=== PATIENT | female | born 1950 | race Caucasian/White ===

== ENCOUNTER 2018-03-20 08:49 | Outpatient (REF) | payer MEDICARE, SELFPAY ==
[2018-03-20 21:07] LABS: Anion Gap 7.1 mmol/L (3-11); BUN 15 mg/dL (7-18); CO2 30.9 mmol/L (21.0-32.0); Calcium 9.5 mg/dL (8.5-10.1); Chloride 101 mmol/L (98-107); Glucose 172 mg/dL (70-100); Potassium 4.2 mmol/L (3.5-5.1); Sodium 139 mmol/L (136-145)
== END 2018-03-20 09:09 ==
LOC: NCHCN 08:49
PROVIDERS: PCP Internal Medicine; Visit Provider Nurse Practitioner Family
DX: E11.9 Type 2 diabetes mellitus without complications (principal); I10 Essential (primary) hypertension
CPT/HCPCS: 80048

== ENCOUNTER 2018-07-30 15:24 | Outpatient (REF) | payer MEDICARE, OTHER, SELFPAY ==
[2018-07-31 12:50] LABS: Specimen Description SEE COMMENTS; Varicella Zoster DNA Result Negative
[2018-07-31 12:57] LABS: HSV 1 DNA Result Negative; HSV 2 DNA Result Negative; Specimen Description SEE COMMENTS
== END 2018-07-30 15:44 ==
LOC: NCHCN 15:24
PROVIDERS: PCP Internal Medicine; Visit Provider Nurse Practitioner Family
DX: L03.019 Cellulitis of unspecified finger (principal); Z11.59 Encounter for screening for other viral diseases
CPT/HCPCS: 87529; 87798; 86695; 86696; 87070; 87205

== ENCOUNTER 2018-09-25 09:10 | Outpatient (REF) | payer MEDICARE, OTHER, SELFPAY ==
[2018-09-25 21:37] LABS: COMMENT (LAB VIEW ONLY) 119.42 mg/dL; Microalb ug/mg Crea 20.3 ug/mg Cr
== END 2018-09-25 09:30 ==
LOC: NCHCN 09:10
PROVIDERS: PCP Nurse Practitioner Family; Visit Provider Nurse Practitioner Family
DX: E11.9 Type 2 diabetes mellitus without complications (principal); I10 Essential (primary) hypertension
CPT/HCPCS: 82043; 82570

== ENCOUNTER 2019-03-26 08:44 | Outpatient (REF) | payer MEDICARE, OTHER, SELFPAY ==
[2019-03-26 22:42] LABS: ALT 22 U/L (14-59); AST 17 U/L (15-37); Albumin 3.4 g/dL (3.4-5.0); Alkaline Phosphatase 106 U/L (46-116); Anion Gap 9.5 mmol/L (3-11); BUN 17 mg/dL (7-18); Bilirubin, Total 0.3 mg/dL (0.2-1.0); CO2 28.5 mmol/L (21.0-32.0); CREATININE 0.73 mg/dL (0.55-1.02); Calcium 8.8 mg/dL (8.5-10.1); Chloride 103 mmol/L (98-107); Glucose 126 mg/dL (74-106); Sodium 141 mmol/L (136-145); Total Protein 6.2 g/dL (6.4-8.2)
== END 2019-03-26 09:04 ==
LOC: NCHCN 08:44
PROVIDERS: PCP Nurse Practitioner Family; Visit Provider Nurse Practitioner Family
DX: I10 Essential (primary) hypertension (principal); E11.9 Type 2 diabetes mellitus without complications
CPT/HCPCS: 80053

== ENCOUNTER 2020-04-21 14:53 | Outpatient (REF) | payer MEDICARE, SELFPAY ==
[2020-04-21 14:06] LABS: Anion Gap 10.8 mmol/L (3-11); BUN 16 mg/dL (7-18); CO2 27.2 mmol/L (21.0-32.0); CREATININE 0.9 mg/dL (0.55-1.02); Calcium 9.2 mg/dL (8.5-10.1); Chloride 102 mmol/L (98-107); Glucose 155 mg/dL (74-106); Sodium 140 mmol/L (136-145)
[2020-04-21 14:11] LABS: Hemoglobin A1C 6.5 % (<5.7)
== END 2020-04-21 14:54 | disposition home or self-care (01) ==
LOC: NCHCN 14:53
PROVIDERS: PCP Nurse Practitioner Family; Visit Provider Nurse Practitioner Family
DX: E11.9 Type 2 diabetes mellitus without complications (principal); I10 Essential (primary) hypertension
CPT/HCPCS: 80048; 83036

== ENCOUNTER 2020-10-18 17:48 | Outpatient (REF) | payer MEDICARE, SELFPAY ==
[2020-10-18 16:47] LABS: Microalb ug/mg Crea 8.7 ug/mg Cr
== END 2020-10-18 17:49 | disposition home or self-care (01) ==
LOC: NCHCN 17:48
PROVIDERS: PCP Nurse Practitioner Family; Visit Provider Nurse Practitioner Family
DX: E11.9 Type 2 diabetes mellitus without complications (principal); I10 Essential (primary) hypertension
CPT/HCPCS: 82043; 82570

== ENCOUNTER 2021-04-10 16:00 | Outpatient (REF) | payer MEDICARE, SELFPAY ==
[2021-04-10 17:19] LABS: Anion Gap 7.6 mmol/L (3-11); BUN 15 mg/dL (7-18); CO2 32.4 mmol/L (21.0-32.0); CREATININE 0.9 mg/dL (0.55-1.02); Calcium 9.2 mg/dL (8.5-10.1); Chloride 98 mmol/L (98-107); Glucose 140 mg/dL (74-106); Potassium 3.6 mmol/L (3.5-5.1); Sodium 138 mmol/L (136-145); Vitamin B12 351 pg/mL (193-986)
== END 2021-04-10 16:01 | disposition home or self-care (01) ==
LOC: NCHCN 16:00
PROVIDERS: PCP Nurse Practitioner Family; Visit Provider Nurse Practitioner Family
DX: E11.9 Type 2 diabetes mellitus without complications (principal); I10 Essential (primary) hypertension; Z51.81 Encounter for therapeutic drug level monitoring
CPT/HCPCS: 80048; 82607; 83036

== ENCOUNTER 2021-10-09 10:38 | Outpatient (REF) | payer MEDICARE, SELFPAY ==
[2021-10-09 14:57] LABS: HCT 39.5 % (36.0-46.0); HGB 13.1 g/dL (11.2-15.7); MCH 28.2 pg (27.0-33.0); MCHC 33.2 % (32.0-36.0); MCV 85 fL (80-95); MPV 11.4 fL (8.0-11.0); Platelet Count 236 10^3/uL (130-400); RBC 4.64 10^6/uL (3.93-5.22); RDW 13.5 % (11.7-14.6); WBC 7.32 10^3/uL (4.4-10.8)
[2021-10-09 15:08] LABS: Anion Gap 7.2 mmol/L (3-11); BUN 18 mg/dL (7-18); CO2 27.8 mmol/L (21.0-32.0); CREATININE 0.9 mg/dL (0.55-1.02); Chloride 103 mmol/L (98-107); Glucose 140 mg/dL (74-106); Potassium 3.7 mmol/L (3.5-5.1); Sodium 138 mmol/L (136-145)
[2021-10-09 15:33] LABS: Hemoglobin A1C 6.8 % (<5.7)
== END 2021-10-09 10:39 | disposition home or self-care (01) ==
LOC: NCHCN 10:38
PROVIDERS: PCP Nurse Practitioner Family; Visit Provider Nurse Practitioner Family
DX: Z13.0 Encounter for screening for diseases of the blood and blood-forming organs and certain disorders involving the immune mechanism (principal); Z51.81 Encounter for therapeutic drug level monitoring; E11.9 Type 2 diabetes mellitus without complications; I10 Essential (primary) hypertension; E66.9 Obesity, unspecified
CPT/HCPCS: 80048; 85027; 83036

== ENCOUNTER 2021-10-12 11:07 | Outpatient (REF) | payer MEDICARE, SELFPAY ==
[2021-10-12 16:35] LABS: COMMENT (LAB VIEW ONLY) 27.17 mg/dL; Microalb ug/mg Crea 8.1 ug/mg Cr
== END 2021-10-12 11:08 | disposition home or self-care (01) ==
LOC: NCHCN 11:07
PROVIDERS: PCP Nurse Practitioner Family; Visit Provider Nurse Practitioner Family
DX: E11.9 Type 2 diabetes mellitus without complications (principal)
CPT/HCPCS: 82043; 82570

== ENCOUNTER 2022-01-02 17:43 | Outpatient (REF) | payer MEDICARE, SELFPAY ==
--- NOTE | 2022-01-02 11:30 | SKI_PTH ---
PATIENT: Harsh Santana LOC: [facility] U#:[id number] AGE/SX: 71/F ROOM: RE01/02/[address]: Ara Suarez : 1950 BED: DIS: 01/02/2022 SPEC #: [id number] RECD: 01/03/22 12:39 STATUS: HENOK REFrancisco #: [id number] JENY: 01/02/22 11:[address]: Ara Lechuga DEPT: Surgical Specimen RECD BY: Anne Campa Tissues: 1 - SKIN BIOPSY(SHAVE/PUNCH) Procedures: SKIN LEVEL 4 Comments: [id number]
== END 2022-01-02 17:44 | disposition home or self-care (01) ==
LOC: NCHCN 17:43
PROVIDERS: PCP Nurse Practitioner Family; Visit Provider Nurse Practitioner Family
DX: C44.42 Squamous cell carcinoma of skin of scalp and neck (principal)
CPT/HCPCS: 88305

== ENCOUNTER 2022-05-17 10:30 | Outpatient (CLI) | payer MEDICARE, SELFPAY ==
--- NOTE | 2022-05-17 10:38 | DI.RAD_ITS ---
Exam(s) XR HIP LT COMPLETE AP PELVIS EXAM: XR HIP LT COMPLETE AP PELVIS CLINICAL HISTORY: L hip pain. TECHNIQUE: 2D digital imaging was performed of the left hip. Two views were obtained. AP pelvis an d lateral left hip views were obtained. COMPARISON: No exams were available for comparison FINDINGS: BONES: No acute fracture is present. No bony destructive lesion is seen. JOINTS: No dislocation present. There are degenerative changes of the left hip with joint space narro wing and acetabular spurring. The patient has a right total hip replacement which appears in good po sition. SOFT TISSUE: Normal. IMPRESSION: Mild degenerative changes of the left hip. DATA REPOSITORY: RADIATION DOSE DELIVERED:
== END 2022-05-17 10:31 | disposition home or self-care (01) ==
LOC: DIORS 10:30
PROVIDERS: PCP Nurse Practitioner Family; Referring Provider Nurse Practitioner Family; Visit Provider Student in an Organized Health Care Education/Training Program
DX: M16.12 Unilateral primary osteoarthritis, left hip
CPT/HCPCS: 99203; 73502

== ENCOUNTER 2022-06-15 01:44 | Outpatient (CLI) | payer MEDICARE, SELFPAY ==
[2022-06-15 11:56] LABS: HCT 39.3 % (36.0-46.0); HGB 13.2 g/dL (11.2-15.7); MCH 28.9 pg (27.0-33.0); MCHC 33.6 % (32.0-36.0); MCV 86 fL (80-95); Platelet Count 243 10^3/uL (130-400); RBC 4.56 10^6/uL (3.93-5.22); RDW 13.9 % (11.7-14.6); RDW-SD 43.6 fL; WBC 9.89 10^3/uL (4.4-10.8)
[2022-06-15 12:04] LABS: Hemoglobin A1C 7.1 % (<5.7)
[2022-06-15 12:31] LABS: Anion Gap 7.8 mmol/L (3-11); BUN 13 mg/dL (7-18); CO2 31.2 mmol/L (21.0-32.0); CREATININE 0.9 mg/dL (0.55-1.02); Calcium 9.4 mg/dL (8.5-10.1); Chloride 100 mmol/L (98-107); Estimated GFR 67.92 (mL/min/1.73m2); Glucose 158 mg/dL (74-106); Potassium 4.2 mmol/L (3.5-5.1); Sodium 139 mmol/L (136-145)
== END 2022-06-15 01:45 | disposition home or self-care (01) ==
LOC: LBO 01:52
PROVIDERS: PCP Nurse Practitioner Family; Visit Provider Student in an Organized Health Care Education/Training Program
DX: M25.552 Pain in left hip (principal); M16.12 Unilateral primary osteoarthritis, left hip; E11.9 Type 2 diabetes mellitus without complications; I10 Essential (primary) hypertension; Z01.818 Encounter for other preprocedural examination; Z01.812 Encounter for preprocedural laboratory examination
CPT/HCPCS: 36415; 80048; 85027; 83036

== ENCOUNTER 2022-10-05 01:48 | Outpatient (CLI) | payer MEDICARE, SELFPAY ==
[2022-10-05 10:02] LABS: HCT 39.4 % (36.0-46.0); HGB 13.4 g/dL (11.2-15.7); MCH 29.1 pg (27.0-33.0); MCV 86 fL (80-95); MPV 10.6 fL (8.0-11.0); Platelet Count 249 10^3/uL (130-400); RBC 4.61 10^6/uL (3.93-5.22); RDW 13.3 % (11.7-14.6)
[2022-10-05 10:22] LABS: Hemoglobin A1C 6.8 % (<5.7)
[2022-10-05 10:24] LABS: Anion Gap 8.8 mmol/L (3-11); BUN 18 mg/dL (7-18); CO2 29.2 mmol/L (21.0-32.0); Calcium 9.2 mg/dL (8.5-10.1); Chloride 103 mmol/L (98-107); Estimated GFR 59.86 (mL/min/1.73m2); Glucose 178 mg/dL (74-106); Potassium 3.3 mmol/L (3.5-5.1); Sodium 141 mmol/L (136-145)
== END 2022-10-05 01:49 | disposition home or self-care (01) ==
LOC: LBO 01:48
PROVIDERS: PCP Nurse Practitioner Family; Visit Provider Student in an Organized Health Care Education/Training Program
DX: M25.552 Pain in left hip (principal); M16.12 Unilateral primary osteoarthritis, left hip; E11.9 Type 2 diabetes mellitus without complications; I10 Essential (primary) hypertension; Z01.818 Encounter for other preprocedural examination; Z01.812 Encounter for preprocedural laboratory examination
CPT/HCPCS: 36415; 80048; 85027; 83036

== ENCOUNTER 2022-10-09 05:49 | Day surgery (SDC) | payer MEDICARE, SELFPAY ==
[2022-10-09] VITALS (9 sets, daily range): BP systolic 110–141; BP diastolic 48–95; PULSE 64–82; RESP 15–20; TEMP 35.9–36.4; O2SAT 93–99; BMI 39.6
[2022-10-09] MEDS: Celecoxib 200 MG CAP 400 MG PO (06:39)
[2022-10-09] MEDS: Acetaminophen 500 MG TAB 1000 MG PO (06:39)
[2022-10-09] MEDS: Lactated Ringers 1,000 ML 80 ML IV (07:00)
--- NOTE | 2022-10-09 07:06 | ANES.PREOP_ITS ---
General Info Date of Service Date Performed: 10/09/22 Height: 5 ft 3.75 in Weight: 103.8 kg Body Mass Index (BMI): 39.6 Surgical Procedure: Operation Date: 10/09/22 07:50 Proposed Procedure Side Surgeon p Hip Total Hip Anterior, ACTIS (08/22 STD) Left Franklyn Cooper MD Meds Allergies and Home Medications Allergies Allergy/AdvReac Type Severity Reaction Status Date / Time iodine Allergy Severe Verified 10/08/22 14:54 shellfish derived Allergy Severe Verified 10/08/22 14:54 lisinopril Allergy Mild Verified 10/08/22 14:54 Home Medication Medication Instructions Recorded albuterol sulfate 90 mcg/actuation 2 puff inhalation Q6H PRN 04/17/22 aerosol inhaler (ProAir HFA) insulin glargine 100 unit/mL (3 30 unit subcut QAM 04/18/22 mL) subcutaneous pen (Lantus Solostar U-100 Insulin) losartan 50 mg-hydrochlorothiazide 1 tab PO DAILY 04/18/22 12.5 mg tablet metformin 500 mg tablet 1,000 mg PO BID 04/18/22 red yeast rice 600 mg capsule 1,200 mg PO DAILY 04/18/22 berberine-herbal comb no.18 capsule 1 cap PO DIRECTED 06/15/22 bitter melon extract 750 mg tablet 750 mg PO DIRECTED 06/15/22 lysine 500 mg tablet (L-Lysine) 500 mg PO DAILY 06/15/22 turmeric root extract 500 mg tablet 1,000 mg PO DAILY 06/15/22 loratadine-pseudoephedrine ER 10 1 tab PO DAILY 10/08/22 mg-240 mg tablet,extended [id number] (Claritin-D 24 Hour) acetaminophen 500 mg tablet 1,000 mg PO Q8H PRN pain #90 tabs 10/09/22 aspirin 81 mg tablet,delayed 81 mg PO BID 30 days #60 tabs 10/09/22 release celecoxib 200 mg capsule (Celebrex) 200 mg PO BID PRN #60 caps 10/09/22 docusate sodium 100 mg capsule 100 mg PO BID #30 caps 10/09/22 (Colace) gabapentin 300 mg capsule 300 mg PO QHS #14 caps 10/09/22 oxycodone 5 mg tablet 5 mg PO Q6H PRN #12 tabs 10/09/22 pantoprazole 40 mg tablet,delayed 40 mg PO DAILY 30 days #30 tabs 10/09/22 release Current Visit Medications: Current Medications Generic Name Dose Route Start Last Admin Trade Name Rajendra PRN Reason Stop Dose Admin Acetaminophen 1,000 mg 10/09/22 06:00 10/09/22 06:39 Acetaminophen 500 Mg Tab PO 10/09/22 16:00 1,000 mg PREOP MIQUEL Administration Celecoxib 400 mg 10/09/22 06:00 10/09/22 06:39 Celecoxib 200 Mg Cap PO 10/09/22 16:00 400 mg PREOP MIQUEL Administration Tranexamic Acid 1,000 mg/ 60 mls @ 360 mls/hr 10/09/22 06:00 Sodium Chloride IV 10/09/22 16:00 PREOP MIQUEL Ringer's Solution 1,000 mls @ 80 mls/hr 10/09/22 06:00 10/09/22 07:00 IV 11/07/22 23:59 80 mls/hr INFUSION MIQUEL Administration Cefazolin Sodium/Dextrose 2 gm in 50 mls @ 100 mls/hr 10/09/22 06:00 Ancef Duplex IVPB 11/07/22 23:59 PREOP MIQUEL IV Miscellaneous Supplies 1 each 10/09/22 06:00 Iv Access IV 11/07/22 23:59 DIRECTED MIQUEL Sodium Chloride 0 ml 10/09/22 06:00 Normal Saline Flush 10 Ml Syr IV 11/07/22 23:59 PRN PRN Sodium Chloride 0 ml 10/09/22 06:00 Normal Saline 10 Ml Vial IJ 11/07/22 23:59 DIRECTED PRN Sterile Water 0 ml 10/09/22 06:00 Water,Injection,Sterile 10 Ml Vial IJ 11/07/22 23:59 DIRECTED PRN PFSH Active Problems Active Problems: Problem Status Onset Code 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 Systolic murmur R01.1 Type 2 diabetes mellitus E11.9 Hypertension I10 Hyperlipidemia E78.5 Asthma, intermittent J45.20 Primary osteoarthritis of left hip M16.12 Medical History Medical History Actinic keratosis Alopecia senilis GERD (gastroesophageal reflux disease) High grade dysplasia in colonic adenoma Surgical History Surgical History (Updated 10/09/22 @ 06:23 by Lorrie Nicole) Bilateral cataracts History of carpal tunnel surgery of right wrist History of total right hip replacement Hx of colonoscopy Status post appendectomy Status post cholecystectomy Status post small bowel resection (~2019) Tobacco Smoking/Tobacco Use Status: Never Alcohol Alcohol Intake: never Substance Use Substance use type: does not use Vital Signs and Lab Results Vital Signs Most Recent Vital Signs in EMR: Most Recent Vital Signs Temp Pulse Resp BP Pulse Ox 36.4 C L 69 16 133/80 97 10/09/22 06:24 10/09/22 06:24 10/09/22 06:24 10/09/22 06:24 10/09/22 06:24 Lab Results Blood Type / Crossmatch: No Data to Display Complete Blood Count: White Blood Count 7.70 10^3/uL (4.4-10.8) 10/05/22 09:56 Red Blood Count 4.61 10^6/uL (3.93-5.22) 10/05/22 09:56 Hemoglobin 13.4 g/dL (11.2-15.7) 10/05/22 09:56 Hematocrit 39.4 % (36.0-46.0) 10/05/22 09:56 Platelet Count 249 10^3/uL (130-400) 10/05/22 09:56 Complete Metabolic Panel: Sodium 141 mmol/L (136-145) 10/05/22 09:56 Potassium 3.3 mmol/L (3.5-5.1) L 10/05/22 09:56 Chloride 103 mmol/L (98-107) 10/05/22 09:56 Carbon Dioxide 29.2 mmol/L (21.0-32.0) 10/05/22 09:56 BUN 18 mg/dL (7-18) 10/05/22 09:56 Creatinine 1.0 mg/dL (0.55-1.02) 10/05/22 09:56 Est GFR (CKD-EPI 2020) 59.86 (mL/min/1.73m2) 10/05/22 09:56 Calcium 9.2 mg/dL (8.5-10.1) 10/05/22 09:56 Glucose 178 mg/dL (74-106) H 10/05/22 09:56 Hemoglobin A1c 6.8 % (<5.7) H 10/05/22 09:47 Liver Function Panel: No Data to Display Coagulation Panel: No Data to Display Cardiac Panel: No Data to Display Arterial Blood Gas: No Data to Display Venous Blood Gas: No Data to Display Pancreas Panel: No Data to Display Thyroid Panel: No Data to Display Infectious Disease: No Data to Display Blood Cultures: No Data to Display Toxicology Panel: No Data to Display Anesthesia Assessment and Plan Anesthesia History Personal History: No History of Anesthesia Complications Family History: No Family History of Anesthesia Complications Exercise Tolerance Exercise Tolerance: Metabolic Equivalents>4 Pertinent Negatives Pertinent Negatives: No Symptoms of GERD and No Major Cardiovascular Symptoms or Complaints Cardiac & Pulmonary Exam Cardiac Exam: Normal S1/S2 Heart Sounds Pulmonary Exam: Clear Bilateral Breath Sounds Implantable Cardiac Device Does patient have a Pacemaker or an ICD?: No Airway Exam Known Difficult Airway: No Mallampati Class: 1 Mouth Opening: Normal (> 3cm) Thyromental Distance: Greater than 3 cm Neck Range of Motion: Full ROM Neck Circumference: Normal Teeth Condition: Normal Dentition ASA Classification ASA Score: ASA 2 Emergency Case?: No NPO Status NPO Status: NPO Clears >2 hours, Solids >8 hours Anesthesia Plan Resuscitation Status: Full Code Anesthesia Technique: Spinal Anesthesia Airway Planned: Natural Airway Monitors Used: Standard Monitors Preoperative Comments:: Recent echo at [facility] which pt. States good heart function and normal heart valves
--- NOTE | 2022-10-09 07:22 | W.PREOPHP ---
Assessment and Plan Assessment and plan (1) Primary osteoarthritis of left hip: Status: Chronic Assessment and plan: Harsh is a 72-year-old female who has known arthritis of the left hip. Please see the previous office note for complete detailed history and physical. There is been no changes from that appointment. She is here today for the hip replacement without any acute changes. Once again, I discussed the possible complications of hip replacement. These include but are not limited to bleeding, infection, pain, stiffness, weakness, damage to nerves (especially the lateral femoral cutaneous nerve), damage to vessels, damage to muscle and tendon, fracture, leg length inequality, wound healing complications, instability, dislocation, and blood clot. Questions were answered. I again expressed that this is a surgery to improve functional quality of life. After a review of the presented information and risks, Harsh desired to proceed. History of Present Illness History of Present Illness Chief Complaint: Left hip arthritis Narrative: Harsh is a 72-year-old female has known arthritis about her left hip. Please see the previous office note in May for complete detailed medical and surgical history. She continues have limitation about the left hip and is desired hip replacement and is here today for that procedure. She denies any acute changes to her medical history. She has had no active chest pain or shortness of breath. Her diabetes is reportedly in good control. Review of Systems All systems reviewed & are unremarkable except as noted in HPI and below PFSH All Active Problems Squamous cell carcinoma of head and neck (Acute) Systolic murmur (Acute) Type 2 diabetes mellitus (Acute) Hypertension (Chronic) Hyperlipidemia (Acute) Asthma, intermittent (Acute) Primary osteoarthritis of left hip (Chronic) Medical History Actinic keratosis Alopecia senilis GERD (gastroesophageal reflux disease) High grade dysplasia in colonic adenoma Surgical History Bilateral cataracts History of carpal tunnel surgery of right wrist History of total right hip replacement Hx of colonoscopy Status post appendectomy Status post cholecystectomy Status post small bowel resection (~2019) Social History Smoking/Tobacco Use Status: Never Smoking risk assessment performed?: Yes Alcohol Intake: never Substance use type: does not use Housing: house Do you feel safe at home: Yes Do you feel safe in your relationship?: Yes Meds Allergies and Home Medications Allergies Allergy/AdvReac Type Severity Reaction Status Date / Time iodine Allergy Severe Verified 10/08/22 14:54 shellfish derived Allergy Severe Verified 10/08/22 14:54 lisinopril Allergy Mild Verified 10/08/22 14:54 Home Medications Medication Instructions Recorded Confirmed Type albuterol sulfate 90 mcg/actuation 2 puff inhalation Q6H PRN 04/17/22 10/09/22 History aerosol inhaler (ProAir HFA) insulin glargine 100 unit/mL (3 30 unit subcut QAM 04/18/22 10/09/22 History mL) subcutaneous pen (Lantus Solostar U-100 Insulin) losartan 50 mg-hydrochlorothiazide 1 tab PO DAILY 04/18/22 10/09/22 History 12.5 mg tablet metformin 500 mg tablet 1,000 mg PO BID 04/18/22 10/09/22 History red yeast rice 600 mg capsule 1,200 mg PO DAILY 04/18/22 10/09/22 History berberine-herbal comb no.18 capsule 1 cap PO DIRECTED 06/15/22 10/09/22 History bitter melon extract 750 mg tablet 750 mg PO DIRECTED 06/15/22 10/09/22 History lysine 500 mg tablet (L-Lysine) 500 mg PO DAILY 06/15/22 10/09/22 History turmeric root extract 500 mg tablet 1,000 mg PO DAILY 06/15/22 10/09/22 History loratadine-pseudoephedrine ER 10 1 tab PO DAILY 10/08/22 10/09/22 History mg-240 mg tablet,extended [id number] (Claritin-D 24 Hour) acetaminophen 500 mg tablet 1,000 mg PO Q8H PRN pain #90 tabs 10/09/22 Rx aspirin 81 mg tablet,delayed 81 mg PO BID 30 days #60 tabs 10/09/22 Rx release celecoxib 200 mg capsule (Celebrex) 200 mg PO BID PRN #60 caps 10/09/22 Rx docusate sodium 100 mg capsule 100 mg PO BID #30 caps 10/09/22 Rx (Colace) gabapentin 300 mg capsule 300 mg PO QHS #14 caps 10/09/22 Rx oxycodone 5 mg tablet 5 mg PO Q6H PRN #12 tabs 10/09/22 Rx pantoprazole 40 mg tablet,delayed 40 mg PO DAILY 30 days #30 tabs 10/09/22 Rx release Exam Resp Auscultation: clear to auscultation bilaterally Cardio Rate: regular rate Rhythm: regular rhythm Results Last Vital Signs Temp 36.4 C L 10/09/22 06:24 Pulse 69 10/09/22 06:24 Resp 16 10/09/22 06:24 BP 133/80 10/09/22 06:24 Pulse Ox 97 10/09/22 06:24
[2022-10-09] MEDS: ceFAZolin 2 GM/50 ML BAG IVPB (07:36)
--- NOTE | 2022-10-09 08:55 | DI.RAD_ITS ---
Exam(s) XR HIP LT IN OR EXAM: XR HIP LT IN OR CLINICAL HISTORY: total hip. TECHNIQUE: 2D digital imaging was performed. COMPARISON: No exams were available for comparison FINDINGS: Fluoroscopy provided during left hip arthroplasty. See procedure report for details. Total fluoroscopy time 31 seconds IMPRESSION: Radiation exposure index/cumulative dose: joey Lundy= 6.8620mGy DATA REPOSITORY: RADIATION DOSE DELIVERED:
--- NOTE | 2022-10-09 09:06 | ROE_ITS ---
Date of service: 10/09/22 Time of Service: 09:06 Operative Note Operative Note DATE OF PROCEDURE: 10/09/22 PRE-OP DIAGNOSIS: Left Hip Osteoarthritis POST-OP DIAGNOSIS: same PROCEDURE: Left Anterior Total Hip Arthroplasty with Intraoperative Navigation SURGEON: Franklyn Cooper CAPACITY PLANNER: Surekha Lopez ANESTHESIA TYPE: Spinal Refer to Anesthesia Record ESTIMATED BLOOD LOSS: 100 PATHOLOGY: none sent TOURNIQUET TIME: 0 COMPLICATIONS: None Patient was transported to: PACU Patient's condition: stable Implants: 1. Depuy [place] Acetabular Component, 52mm 2. Depuy Acetabular Liner, [id number] 3. Depuy Actis Standard Collared Femoral Stem, Size 5 4. Depuy Altrx Ceramic Femoral Head, Size 36+8.5mm Indications: I have seen Harsh in clinic for symptoms of hip arthritis, confirmed with radiographic findings. She has exhausted nonoperative methods and was having significant limitations in daily function and desired better function and less pain. I discussed the technical details of a hip replacement. I explained the risks of the procedure to include, but not limited to, bleeding, infection, pain, stiffness, fracture, damage to nerves and vessels, damage to muscles and tendons, loosening, instability, leg length inequality, need for repeat p rocedure, blood clot and cardiopulmonary demise. Despite these risks, Harsh elected to proceed. Findings: There was significant signs of arthritis throughout the hip with notable osteophytes about the floor of the acetabulum and synovitis. Procedure Description: Harsh was greeted in the preoperative holding area where the correct side was identified and marked. The consent was reviewed with the patient and signed. The history and physical was updated. All questions were answered. Harsh was taken back to the operating room. A spinal anesthestic was then administered. The feet were wrapped with cast padding and Coban and then placed into the boot liners and then into the boots. Care was taken to protect the skin and make sure the heels were fully down and the boots were stable. The patient was then positioned onto the HANA table. Both legs were held in a neutral position. SCDs were applied. The patient was then slid down onto a peroneal post. Prophylactic antibiotics in the form of Cefazolin were administered. 1g of Tranxemic Acid was given intravenously within 30 minutes of incision. The left leg was then prepped with Chloraprep and draped in a standard fashion. A second prep with Chloraprep was performed prior to placement of a shower-curtain type drape with Iodine impregnated skin protection. A timeout to confirm correct identity, side and site, procedure, allergies, anesthesia, and medical concerns was performed. An obliquely oriented incision was made starting lateral to the ASIS and running distal over the Tensor Fascia Kirsten (TFL) muscle belly toward the fibular head, approximately 10cm. The skin and soft tissue was dissected sharply, through Raoul?s fascia, and to the fascia of the TFL. With the fascia and superior border of the IT band identified, the fascia was incised with a new knife just above any perforators from the IT band. The TFL muscle belly was bluntly dissected away from the fascia and moved laterally. The fat between TFL and rectus was identified to ensure the dissection was not within the TFL. Blunt dissection created space between abductors and the capsule and retractor was placed over the lateral femoral neck. The fibers of the rectus femoris tendon were identified and these were freed from the anterior capsule. A second cobra retractor was placed around the medial femoral neck. The TFL was further retracted laterally to show the deep fascia. Careful dissection through this layer identified three main crossing vessels of the lateral femoral circumflex. These were cauterized in multiple locations and then cut without any noticeable bleeding. The TFL was further released bluntly from the deep fascia to expose anterior hip capsule and fat The Jose Manuel orthopaedic retractor was then placed beneath the TFL and against sartorius and medial soft tissues to protect and retract the soft tissues. A T-capsulotomy was then performed starting at the superior lateral acetabulum and moving distally to the intertrochanteric ridge. These capsular flaps were tagged with a No. 1 Ethibond and elevated from within. The capsular flaps were released to the shoulder of the lateral neck and to the lesser trochanter to give excellent visualization of the proximal femur. A neck osteotomy was performed using an oscillating saw based on preoperative templates. This cut started in the shoulder and of the lateral neck and exited medially. The saw was at all times directed medially to avoid injury to the greater trochanter. Gross traction was applied to the leg and the osteotomy opened. The femoral head was removed with a corkscrew, making sure to protect the TFL on its exit. Traction was released after head removal. This was measured on the back table to determine the starting reamer size. Portions of the rectus obscuring visualization were minimally elevated off the superior acetabulum. An anterior retractor was placed over the anterior wall between capsule and labrum and attached to the Gripper retraction system. The femur was rotated to 90 degrees and medial capsule was fully released until the lesser trochanter was palpable and visible; the femur was returned to 30 degrees. A posterior retractor was placed similarly between capsule and labrum. This provided excellent visualization. The contents of the cotyloid fossa were removed with electrocautery and the labrum was removed with a knife. There was a notable floor osteophyte. There was significant chondromalacia of the superior acetabulum. Acetabular reaming began with a 46mm reamer. This first reaming was directed anterior to posterior and medial to get down to the true floor. This was inspected and reamed until the true floor was reached. The anterior retractor was then released and entry and exit was provided by traction on the capsular flaps. I then reamed sequentially up to a 52mm reamer where good fit was obtained. The larger reamers were oriented based on anatomical reference of the anterior and lateral weaver to ensure proper abduction and anteversion. Positioning and size was confirmed with the fluoroscopy. A 52mm Depuy [place] acetabular component was selected. The acetabulum was reamed around the periphery with the selected acetabular size to prevent a rim fit. The deep tissues were irrigated. The acetabular component was then impacted in a position of about 40-45 degrees of abduction and 15-20 degrees of anteversion, using the patient?s anatomy as the ultimate landmark. Fluoroscopy was used to confirm this. There was excellent tumble tailstock turret lathe operator of the acetabular component and the inserting handle was removed. The acetabular liner, Depuy [id number] polyethylene liner, was inserted and lined up with the tines of the acetabular component. There was no soft tissue interposition. The liner was then impacted into position and confirmed to be well-seated. A portion of the ce-articular cocktail was then injected around the acetabulum into the capsule and periosteum. This cocktail consisted of 123mg of Ropivacaine, 0.25mg of Epinephrine, 0.04mg of Clonidine, and 15mg of Ketorolac, diluted to 50cc. The leg was rotated to 120 degrees. Any remaining medial capsule was released until the lesser trochanter was easily palpable. A retractor was placed medially. The lateral capsule was further released into the shoulder to allow access to the greater trochanter. A Ny retractor was placed over the greater trochanter which allowed the trochanter to flip in front of the capsule for excellent exposure. The leg was brought down into maximal extension and 20 degrees of adduction while ensuring there was no impingement on the acetabulum. Any remnant capsule within the trochanter was released. Piriformis and obturator externis were identified and protected. There was excellent access to the proximal femur. The lateral neck remnant was removed with a rongeur. A blunt canal probe was used to identify the canal and trajectory for later broaching. A box osteotome initiated the broach course. A small curved rasp and a curved curette were used to work laterally. Broaching then began with a starter Actis broach. This was inserted manually around the trochanter and into the canal before mallet blows. The broach was seated to a few millimeters below the cut level based on the neck cut and the preoperative template. Sequential broaching was continued with the Butlrse pneumatic broaching device until a tight fit was obtained with good rotational control of the femur. A trial standard neck was inserted along with a +5 trial head. The leg was brought out of extension and adduction and then reduced with traction and internal rotation. The leg was stable anteriorly in a position of 30 degrees of extension and 90 degrees of external rotation. Fluoroscopy was used to ensure there was no fracture and the stem was seated well. Leg lengths were checked with an AP pelvis and pelvic reference points. WallStrip navigation system was used to confirm appropriate positioning and leg length and offset. The goal was to lengthen 8-10mm based on preoperative images and her use of a 3/4 lift. Once content with the desired offset and leg lengths, the leg was brought back into extension, external rotation and adduction. The periosteum and surrounding tissue was injected with remaining portion of the ce-articular cocktail. The proximal femur was irrigated as well as the deep tissues. The [place] Actis standard collared stem, size 5, was then manually inserted into the proximal femur making sure to control rotation. It was then malleted into position with light blows, giving breaks to allow bone expansion and decrease risk of fracture. The selected Depuy Altrx Ceramic Head, size 36+8.5mm, was then placed onto the clean and dry trunnion and secured with impaction onto the tapered fit. The leg was brought back out of extension and adduction and reduced with traction and internal rotation. Stability was confirmed with no shuck at 90 degrees of external rotation and 30 degrees of extension. No impingement through range of motion arc. Final x-ray images were obtained with fluoroscopy to confirm adequate positioning and no intraoperative fracture. The deep tissues were thoroughly irrigated with Surgiphor, betadine solution. This was allowed to sit in the wound for 3 minutes before being thoroughly irrigated out with normal saline. The capsule was then reapproximated with the previously placed Ethibond sutures. The TFL fascia was finally closed with a No. 2 Stratafix, barbed suture. Deep tissues were then reapproximated with 0 Vicryl and a running 2-0 Vicryl. The skin was closed with a running 4-0 Monocryl in a subcuticular fashion. This was reinforced with skin glue. A Mepilex silver dressing was applied. At the end of the case, all counts were correct. Harsh was transferred to the hospital bed without difficulty and suffering no apparent complication. She has a good prognosis. Physical therapy will start today and without restrictions, weight-bearing as tolerated. Aspirin 81mg BID will be used for DVT prophylaxis.
[2022-10-09] MEDS: oxyCODONE 5 MG TAB PO (10:13)
--- NOTE | 2022-10-09 10:33 | DSE_ITS ---
Date of service: 10/09/22 Time of Service: 10:34 DS: Diagnosis Discharge Diagnosis (1) Primary osteoarthritis of left hip: Status: Chronic Discharge Plan Disposition Patient Disposition: Home Condition: Good Discharge Details Reason For Visit: Left hip DJD Attending Provider: Franklyn Cooper Primary Care Provider: Ara Lechuga Home Meds and New Rx's Prescriptions: New acetaminophen 500 mg tablet 1,000 mg PO Q8H PRN Qty: 90 0RF Rx Instructions: Take two tablets up to every 8 hours as needed for pain aspirin 81 mg tablet,delayed release (DR/EC) 81 mg PO BID 30 Days Qty: 60 0RF celecoxib [Celebrex] 200 mg capsule 200 mg PO BID PRNQty: 60 0RF Rx Instructions: Take one tablet twice daily for pain and inflammation docusate sodium [Colace] 100 mg capsule 100 mg PO BID Qty: 30 0RF pantoprazole 40 mg tablet,delayed release (DR/EC) 40 mg PO DAILY 30 Days Qty: 30 0RF gabapentin 300 mg capsule 300 mg PO QHS Qty: 14 0RF Rx Instructions: Take one tablet at bedtime oxycodone 5 mg tablet 5 mg PO Q6H PRNQty: 12 0RF Rx Instructions: Take one tablet up to every 6 hours as needed for severe postoperative pain Continued albuterol sulfate [ProAir HFA] 90 mcg/actuation HFA aerosol inhaler 2 puff inhalation Q6H PRN berberine-herbal comb no.18 Capsule 1 cap PO DIRECTED bitter melon extract 750 mg tablet 750 mg PO DIRECTED turmeric root extract 500 mg tablet 1,000 mg PO DAILY Patient Comments: PATIENT STATES THESE ARE GUMMIES, NOT TABLETS lysine [L-Lysine] 500 mg tablet 500 mg PO DAILY metformin 500 mg tablet 1,000 mg PO BID Rx Instructions: dose is reported at 2 tablets q am, 1 tab at 12, then 2 tablets q pm losartan-hydrochlorothiazide 50-12.5 mg tablet 1 tab PO DAILY insulin glargine [Lantus Solostar U-100 Insulin] 100 unit/mL (3 mL) insulin pen 30 unit subcut QAM Patient Comments: 20 units 10/08/22 red yeast rice 600 mg capsule 1,200 mg PO DAILY Rx Instructions: give with meal/snack Claritin-D 24 Hour 10-240 mg Tablet Extended Release 24 Hr 1 tab PO DAILY Discontinued acetaminophen [Tylenol Extra Strength] 500 mg Capsule 1,000 mg PO QID PRN ibuprofen 200 mg Tablet 600 mg PO Q6H PRN Discharge Instructions Additional Instructions: Total Hip Discharge Instructions Activity: The most important activity is to walk. You should try to take short walks a few times a day. You have no restrictions on movement or positioning, but do not try to force what you do. You will find some stiffness and weakness with hip flexion (lifting your knee). Do not try to strengthen this too early, continue to practice walking and stairs and this will come. - Outpatient physical therapy can be helpful to help return you to a normal gait and improve your flexibility and strength. This can start around 2 weeks. For some patients, it?s not necessary. Usually this is determined at the time of discharge or at the first post-operative visit. - You should wear the FEDERICO hose on both legs for 2 weeks. Dressing: Keep the surgical dressing in place for at least one week. After the first week it may be removed and replace with light gauze and tape or nothing. It may get wet after 3 days but avoid soaking the dressing. If it gets wet, just lightly pat dry. It is important to always keep some gauze between skin folds, especially when you are sitting. Spend some time with the wound exposed when you are lying flat as the incision does wrinkle onto itself. Medications: - You should take Tylenol and an anti-inflammatory Celebrex as your primary pain control medications. If the Celebrex is too expensive or not covered, please call the office for another alternative (Advil/Ibuprofen or Naproxen/Aleve). - You have been prescribed a stronger pain medication Oxycodone for breakthrough pain, take as needed as prescribed. - You have also been prescribed a stomach acid reduction agent Pantoprozole to help reduce stomach acid and reflux - You will be taking Aspirin 81mg twice a day for DVT prevention unless instructed otherwise. - If you have constipation you should take Colace (which has been prescribed) or Miralax (which is available [id number]). It takes most people 3-4 days to have a bowel movement. Follow-up: 2 weeks If you have any acute concerns or questions, please do not hesitate to contact the office at [phone]. You may contact Dr. Cooper with any questions after hours through the hospital at [phone] or on his cell phone at [phone]. Stand Alone Forms: Anesthesia Discharge Inst[facility] Fabiana Carpenter ([facility]) Referrals: Franklyn Cooper MD [ [facility] STAFF PHYSICIAN] - Equipment/Supplies: Walker Activity:: Activity as Tolerated Remove Dressings/Wound Care:: Do Not Remove Shower/Bathe:: Cover Diet:: As Tolerated Discharge Orders Discharge Orders: Discharge Order (Routine); Ordered 10/09/22 Ordered By: Franklyn Cooper DS: Summary Time Spent with Patient providing and/or coordinating discharge services: Less than 30 minutes Status at Discharge Functional status at discharge: uses cane/walker Overall status at discharge: patient is progressing back to baseline Mental Status: mental status grossly normal Speech and Movement: speech and movement normal Mood: congruent mood Affect: normal affect Exam Psych Mental Status: mental status grossly normal Speech and Movement: speech and movement normal Mood: congruent mood Affect: normal affect DS: Data Vitals/I&O Vitals and I&O: Vital Signs Temperature 97.5 F L 10/09/22 06:24 Pulse 69 10/09/22 06:24 Pulse Rhythm Regular 10/09/22 06:24 Respiratory Rate 16 10/09/22 06:24 Respiratory Depth Normal 10/09/22 06:24 Blood Pressure 133/80 10/09/22 06:24 Pulse Oximetry 97 10/09/22 06:24 Oxygen Delivery Method Room Air 10/09/22 06:24 Oxygen Flow Rate 0 10/09/22 06:24 Pain Level 0 10/09/22 06:24 Intake & Output 10/08/22 10/08/22 10/09/22 11:59 23:59 11:59 Weight 239 lb 0.015 oz 239 lb 0.015 oz 228 lb 13.437 oz PFSH All Active Problems Squamous cell carcinoma of head and neck (Acute) Systolic murmur (Acute) Type 2 diabetes mellitus (Acute) Hypertension (Chronic) Hyperlipidemia (Acute) Asthma, intermittent (Acute) Primary osteoarthritis of left hip (Chronic) Medical History Actinic keratosis Alopecia senilis GERD (gastroesophageal reflux disease) High grade dysplasia in colonic adenoma Surgical History Bilateral cataracts History of carpal tunnel surgery of right wrist History of total right hip replacement Hx of colonoscopy Status post appendectomy Status post cholecystectomy Status post small bowel resection (~2019) Social History Smoking/Tobacco Use Status: Never Smoking risk assessment performed?: Yes Alcohol Intake: never Substance use type: does not use Housing: house Do you feel safe at home: Yes Do you feel safe in your relationship?: Yes Time Spent with Patient Time Spent with Patient: <45 minutes Time was spent: obtaining and/or reviewing separately otained hiistory, ordering medications,tests, procedures and counseling the patient
--- NOTE | 2022-10-09 11:04 | W.ANESPOSTOP ---
Postoperative Evaluation Date, Time and Location Date Performed: 10/09/22 Time Performed: 10:20 Patient Location: Day Surgery Unit Vital Signs Most Recent Imported Vital Signs: Most Recent Vital Signs Temp Pulse Resp BP Pulse Ox 36.3 C L 72 16 124/95 H 98 10/09/22 10:29 10/09/22 10:29 10/09/22 10:29 10/09/22 10:29 10/09/22 10:29 Pain Score Most Recent Pain Score: Most Recent Pain Score Pain Level [Left Hip] 6 10/09/22 10:02 Pain Level 4 10/09/22 10:29 Assessment Mental Status: Awake (Alert & Oriented to Patient Baseline) Airway and Respiratory Function: Patent airway with normal (patient baseline) respiratory exam Cardiovascular Function: Hemodynamically Stable Hydration Status: Adequately Hydrated Nausea & Vomiting: No Nausea or Vomiting Pain: Pain is tolerable per patient Peripheral Nerve Block: Patient did not receive a nerve block
--- NOTE | 2022-10-09 17:56 | PT.INIE ---
Date of service: 10/09/22 Time of Service: 10:52 PT Notes Visit Reasons: Left hip DJD Physical Therapy Day Surgery Initial Evaluation Date: 10/09/2022 Referring Doctor: HARLEEN Benton PT Orders: PT CONSULT: S/P Ortho surgery Precautions: WBAT on left LE with AD. Patient Profile/Admitting Diagnosis: Jane is a 72-year-old female with primary unilateral osteoarthritis of the left hip and is status post left total hip arthroplasty on postoperative day 0. PMHX: All Active Problems? Squamous cell carcinoma of head and neck (Acute) Systolic murmur (Acute) Type 2 diabetes mellitus (Acute) Hypertension (Chronic) Hyperlipidemia (Acute) Asthma, intermittent (Acute) Primary osteoarthritis of left hip (Chronic) Medical History? Actinic keratosis Alopecia senilis GERD (gastroesophageal reflux disease) High grade dysplasia in colonic adenoma Surgical History? Bilateral cataracts History of carpal tunnel surgery of right wrist History of total right hip replacement Hx of colonoscopy Status post appendectomy Status post cholecystectomy Status post small bowel resection (~2019) Social History/Home Situation: Lives with in a private home with 3 steps to enter with rails on both sides. Equipment Owned/DME: [facility] Subjective: Denies headache, chest pain, and lightheadedness throughout session. Reported 2?3/10 pain in the left hip at rest and with weight bearing. Objective: General Observation: Resting in bed. Mepilex Ag over surgical incision. TDS to be legs. Mental Status: Alert and oriented x4 Pain: As above ROM: Right Lower Extremity: Hip flexion WFL. Hip abduction WFL. Knee flexion WFL. Ankle dorsiflexion WFL. Ankle plantarflexion WFL. Left Lower Extremity: Hip flexion WFL. Hip abduction WFL. Knee flexion WFL. Ankle dorsiflexion WFL. Ankle plantarflexion WFL. Strength: Right Lower Extremity: Hip flexors 5/5. Hip abductors 5/5. Knee flexors 5/5. Knee extensors 5/5. Ankle dorsiflexors 5/5. Ankle plantarflexors 5/5. Left Lower Extremity:Hip flexors 4/5. Hip abductors 4/5. Knee flexors 5/5. Knee extensors 4/5. Ankle dorsiflexors 5/5. Ankle plantarflexors 5/5. Sensation: Intact as to pain and light pressure in bilateral lower extremities Bed Mobility/Transfers: Supine to sit standby assist Sit to stand contact-guard assist using front wheeled walker Stand to sit standby assist using front wheel walker Bed to chair standby assist using front wheel walker Gait: Tolerated level surface ambulation of 150 feet using front wheeled walker with step through gait pattern requiring contact-guard assist. No shortness of breath. No loss of balance. Balance: Static Sitting: Normal Dynamic Sitting: Normal Static Standing: Fair Dynamic Standing: Fair Special Tests: Mobility Limitations Standardized Measure [facility]-PAC 6 clicks Basic Mobility Inpatient Short Form: Raw Score: 22 CMS Score: 21% deficit Informed Consent/Education: Patient instructed in purpose of PT consult. Packet containing PRATEEK exercise protocol has been given to patient. Education and training on initial set of exercises that can be done at home have been completed with patient. THERA EX: Trained patient with correct performance of exercises below to maximize motor control, joint flexibility, soft tissue extensibility of the [] hip musculature to facilitate return to independent functional mobility performance. Access Code: [email or web address] URL: [email or web address] Date: 10/09/2022 Prepared by: Mirna Medina Exercises - Gluteal Sets - 1 x daily - 7 x weekly - 1 sets - 10 reps - 5 hold - Supine Heel Slide - 1 x daily - 7 x weekly - 1 sets - 10 reps - 5 hold - Supine Ankle Pumps - 1 x daily - 7 x weekly - 1 sets - 10 reps - 5 hold - Seated March - 1 x daily - 7 x weekly - 1 sets - 10 reps - 5 hold - Seated Long Arc Quad - 1 x daily - 7 x weekly - 1 sets - 10 reps - 5 hold Assessment: Patient requires use of a front wheel walker to maximize independence and reduce fall risk. Patient presents with clinical signs and symptoms consistent with current/admitting diagnoses that have resulted to mobility limitations, gait instability, generalized weakness, and impairment of motor control as demonstrated by the following impairment level findings: 1. Decreased strength to left hip major muscle groups 2. Impaired standing balance Impairments are contributing to the following functional limitations: 1. Inability to safely ambulate without assistive device 2. Increase completion time for mobility ADL performance Patient is assessed as a 66819 moderate complexity based on the following: History: 72-year-old female with impairment level findings, functional limitations, and past medical history as indicated above Examination: Demonstrable impairment in strength, balance, and mobility level with underlying impairments and functional limitations as documented above Presentation: Evolving Decision Makin moderate complexity Goals: N/A. PT evaluation and 1-2 treatment sessions only for functional mobility training using recommended AD and for HEP instruction. Plan of Care/Treatment Plan: N/A. PT evaluation and 1-2 treatment session only for functional mobility training using recommended AD and for HEP instruction. DISCHARGE RECOMMENDATIONS: Home when medically cleared by orthopedic surgeon. Recommend outpatient PT services in order to optimize functional mobility outcomes and facilitate return to independent community ambulation without an assistive device. TREATMENT CODE/TIME: 70740 x 29 minutes beginning at 10:52 AM. Thank you for the opportunity to participate in the care of this patient. Mirna Medina PT, DPT, CLT [facility] [place], [place]
== END 2022-10-09 12:20 | disposition home or self-care (01) ==
PROVIDERS: PCP Nurse Practitioner Family; Visit Provider Student in an Organized Health Care Education/Training Program
PROC: (CPT 27130; principal; 2022-10-09 07:30)
DX: M16.12 Unilateral primary osteoarthritis, left hip (principal); I10 Essential (primary) hypertension; E78.5 Hyperlipidemia, unspecified; E11.9 Type 2 diabetes mellitus without complications; Z79.4 Long term (current) use of insulin
CPT/HCPCS: 20985; 27130; C1776; 97162; 73501; J0690; J1100; J2250; J2405

== ENCOUNTER 2022-10-16 11:53 | Outpatient (REF) | payer MEDICARE, SELFPAY ==
[2022-10-16 16:39] LABS: Microalb ug/mg Crea 4.9 ug/mg Cr
== END 2022-10-16 11:54 | disposition home or self-care (01) ==
LOC: NCHCN 11:53
PROVIDERS: PCP Nurse Practitioner Family; Visit Provider Nurse Practitioner Family
DX: E11.9 Type 2 diabetes mellitus without complications (principal)
CPT/HCPCS: 82043; 82570

== ENCOUNTER 2022-10-22 16:04 | Outpatient (CLI) | payer MEDICARE, SELFPAY ==
--- NOTE | 2022-10-22 16:42 | DI.RAD_ITS ---
Exam(s) XR HIP LT COMPLETE AP PELVIS EXAM: XR HIP LT COMPLETE AP PELVIS INDICATION: 1ST POST OP L PRATEEK. COMPARISON: CR XR HIP LT COMPLETE AP PELVIS from 05/17/2022 XA XR HIP LT IN OR from 10/09/2022 TECHNIQUE: 2D digital imaging was performed. Two views. FINDINGS: There has been no change in the alignment of the left hip prosthesis. There are no abnormal surround ing bony lucencies. The previously existing right hip prosthesis also appears unchanged. DATA REPOSITORY: RADIATION DOSE DELIVERED:
== END 2022-10-22 16:05 | disposition home or self-care (01) ==
LOC: DIORS 16:04
PROVIDERS: PCP Nurse Practitioner Family; Referring Provider Nurse Practitioner Family; Visit Provider Student in an Organized Health Care Education/Training Program
DX: Z96.642 Presence of left artificial hip joint (principal); Z47.1 Aftercare following joint replacement surgery
CPT/HCPCS: 73502

== ENCOUNTER → 2022-11-22 10:50 | Outpatient (BNVA) | payer MEDICARE, SELFPAY | PROVIDERS: PCP Nurse Practitioner Family; Referring Provider Nurse Practitioner Family; Visit Provider Student in an Organized Health Care Education/Training Program | DX: Z47.1 Aftercare following joint replacement surgery (principal); Z96.642 Presence of left artificial hip joint ==

== ENCOUNTER 2023-04-15 15:05 | Outpatient (REF) | payer MEDICARE, SELFPAY ==
[2023-04-15 16:01] LABS: Anion Gap 6.2 mmol/L (3-11); BUN 13 mg/dL (7-18); CO2 32.8 mmol/L (21.0-32.0); CREATININE 0.9 mg/dL (0.55-1.02); Calcium 9.2 mg/dL (8.5-10.1); Calculated LDL 87 mg/dL (<100); Chloride 101 mmol/L (98-107); Cholesterol 202 mg/dL (<200); Glucose 159 mg/dL (74-106); HDL Cholesterol 67 mg/dL (40-60); Potassium 3.9 mmol/L (3.5-5.1); Sodium 140 mmol/L (136-145); Triglyceride 242 mg/dL (<150)
[2023-04-15 16:36] LABS: Hemoglobin A1C 7.7 % (<5.7)
== END 2023-04-15 15:06 | disposition home or self-care (01) ==
LOC: NCHCN 15:05
PROVIDERS: PCP Nurse Practitioner Family; Visit Provider Nurse Practitioner Family
DX: E11.9 Type 2 diabetes mellitus without complications (principal); I10 Essential (primary) hypertension; E78.5 Hyperlipidemia, unspecified
CPT/HCPCS: 80048; 80061; 83036

== ENCOUNTER 2023-10-10 11:00 | Outpatient (CLI) | payer MEDICARE, SELFPAY ==
--- NOTE | 2023-10-10 10:00 | DI.RAD_ITS ---
Exam(s) XR HIP LT AP LAT ONLY EXAM: XR HIP LT AP LAT ONLY CLINICAL HISTORY: ANNUAL L PRATEEK. TECHNIQUE: 2D digital imaging was performed. Two images were obtained. AP and lateral views were ob tained. COMPARISON: CR XR HIP LT COMPLETE AP PELVIS from 10/22/2022 FINDINGS: BONES: There are stable post operative changes of a left total hip arthroplasty present. No fracture or dislocation. JOINTS: The orthopedic hardware is in good position. No evidence of hardware loosening. SOFT TISSUE: Normal. IMPRESSION: Stable left total hip replacement. DATA REPOSITORY: RADIATION DOSE DELIVERED:
== END 2023-10-10 11:01 | disposition home or self-care (01) ==
LOC: DIORS 11:00
PROVIDERS: PCP Nurse Practitioner Family; Referring Provider Nurse Practitioner Family; Visit Provider Student in an Organized Health Care Education/Training Program
DX: Z47.1 Aftercare following joint replacement surgery (principal); Z96.642 Presence of left artificial hip joint
CPT/HCPCS: 99213; 73502

== ENCOUNTER 2024-04-13 17:44 | Outpatient (REF) | payer MEDICARE, SELFPAY ==
[2024-04-13 16:11] LABS: HCT 45.4 % (36.0-46.0); HGB 15.1 g/dL (11.2-15.7); MCH 30.8 pg (27.0-33.0); MCHC 33.3 % (32.0-36.0); MCV 93 fL (80-95); MPV 10.8 fL (8.0-11.0); Platelet Count 253 10^3/uL (130-400); RBC 4.91 10^6/uL (3.93-5.22); RDW 14.1 % (11.7-14.6); RDW-SD 47.7 fL; WBC 7.87 10^3/uL (4.4-10.8)
[2024-04-13 16:45] LABS: ALT 15 U/L (14-59); AST 20 U/L (15-37); Albumin 3.9 g/dL (3.4-5.0); Alkaline Phosphatase 105 U/L (46-116); Anion Gap 7.3 mmol/L (3-11); BUN 15 mg/dL (7-18); Bilirubin, Total 0.72 mg/dL (0.2-1.0); CO2 30.7 mmol/L (21.0-32.0); CREATININE 0.9 mg/dL (0.55-1.02); Calcium 9.4 mg/dL (8.5-10.1); Calculated LDL 98 mg/dL (<100); Chloride 103 mmol/L (98-107); Cholesterol 203 mg/dL (<200); Estimated GFR 67.08 (mL/min/1.73m2); Glucose 121 mg/dL (74-106); HDL Cholesterol 70 mg/dL (40-60); Potassium 4.3 mmol/L (3.5-5.1); Sodium 141 mmol/L (136-145); Total Protein 7.7 g/dL (6.4-8.2); Triglyceride 177 mg/dL (<150)
[2024-04-13 16:51] LABS: Hemoglobin A1C 6.9 % (<5.7)
== END 2024-04-13 17:45 | disposition home or self-care (01) ==
LOC: NCHCN 17:44
PROVIDERS: PCP Nurse Practitioner Family; Visit Provider Nurse Practitioner Family
DX: I10 Essential (primary) hypertension (principal); E11.9 Type 2 diabetes mellitus without complications; E78.5 Hyperlipidemia, unspecified; Z13.0 Encounter for screening for diseases of the blood and blood-forming organs and certain disorders involving the immune mechanism
CPT/HCPCS: 80053; 80061; 85027; 83036

== ENCOUNTER 2024-06-15 17:09 | Outpatient (REF) | payer MEDICARE, SELFPAY ==
[2024-06-15 22:05] LABS: TSH 5.03 uIU/mL (0.36-3.74); Vitamin B12 156 pg/mL (193-986)
[2024-06-16 21:14] LABS: FREE T4 1.01 ng/dL (0.76-1.46)
[2024-06-17 18:51] LABS: Thyroglobulin Antibody <15 U/mL (<=60); Thyroperoxidase Antibody <28 U/mL (<=60)
== END 2024-06-15 17:10 | disposition home or self-care (01) ==
LOC: NCHCN 17:09
PROVIDERS: PCP Nurse Practitioner Family; Visit Provider Nurse Practitioner Family
DX: R41.89 Other symptoms and signs involving cognitive functions and awareness (principal); R94.6 Abnormal results of thyroid function studies
CPT/HCPCS: 82607; 84439; 84443; 86376; 86800

== ENCOUNTER 2024-08-24 12:31 | Outpatient (REF) | payer MEDICARE, SELFPAY ==
[2024-08-24 16:22] LABS: TSH (W/Ref FT4) 3.84 uIU/mL (0.36-3.74); Vitamin B12 1819 pg/mL (193-986)
[2024-08-24 16:44] LABS: FREE T4 1.04 ng/dL (0.76-1.46)
== END 2024-08-24 12:32 | disposition home or self-care (01) ==
LOC: NCHCN 12:31
PROVIDERS: PCP Nurse Practitioner Family; Visit Provider Nurse Practitioner Family
DX: E03.9 Hypothyroidism, unspecified (principal); E53.9 Vitamin B deficiency, unspecified
CPT/HCPCS: 82607; 84439; 84443

== ENCOUNTER 2024-10-26 16:21 | Outpatient (REF) | payer MEDICARE, SELFPAY ==
[2024-10-26 21:50] LABS: COMMENT (LAB VIEW ONLY) 98.01 mg/dL; Microalb ug/mg Crea 3.1 ug/mg Cr
== END 2024-10-26 16:22 | disposition home or self-care (01) ==
LOC: NCHCN 16:21
PROVIDERS: PCP Nurse Practitioner Family; Visit Provider Nurse Practitioner Family
DX: E11.9 Type 2 diabetes mellitus without complications (principal)
CPT/HCPCS: 82043; 82570

== ENCOUNTER 2024-12-25 11:19 | Outpatient (CLI) | payer MEDICARE, SELFPAY ==
--- NOTE | 2024-12-25 09:00 | DI.RAD_ITS ---
Exam(s) XR KNEE RT 4V AP,LAT,JULIANA,PAT EXAM: XR KNEE RT 4V AP,LAT,JULIANA,PAT CLINICAL HISTORY: RIGHT KNEE PAIN. TECHNIQUE: 2D digital imaging was performed of the right knee. Four views obtained. Merchant, AP, lateral and PA tunnel views were obtained. COMPARISON: CR XR HIP LT AP LAT ONLY from 10/10/2023 FINDINGS: BONES: No acute fracture is present. No bony destructive lesion is seen. There are enthesophytes at the anterior patella in the anterior tibial tuberosity. JOINTS: There is mild narrowing of the medial femoral tibial joint. There osteophytes seen at the posterior patella and the lateral femoral tibial joint. There is chondrocalcinosis seen in the femoral tibial joint. There is a joint effusion present. SOFT TISSUE: Normal. IMPRESSION: 1. Mild degenerative changes of the right knee. 2. Small joint effusion. DATA REPOSITORY: RADIATION DOSE DELIVERED:
== END 2024-12-25 11:20 | disposition home or self-care (01) ==
LOC: DIORS 11:19
PROVIDERS: PCP Nurse Practitioner Family; Referring Provider Nurse Practitioner Family; Visit Provider Physician Assistant
DX: M25.561 Pain in right knee (principal); M17.11 Unilateral primary osteoarthritis, right knee
CPT/HCPCS: 99213; 20610; J1010; 73564